=== PATIENT | female | born 1960 | race American Indian/Alaskan Native ===

== ENCOUNTER 2017-01-25 11:39 | Day surgery (SDC) | payer OTHER ==
[~2017-01-25 11:39] MED LIST: Lidocain 1% EPI 1:100,000 * 30 ML MDV ONE
[2017-01-25] MEDS ORDERED: Bupivacaine 0.25% SDV* 30 ML ONE (14:01)
[2017-01-25 15:04] VITALS: BP 118/58
--- NOTE | 2017-01-26 00:04 | OP ---
DATE OF OPERATION: 01/25/17 - [facility] DATE OF : 64 SURGEON: Regan Deluna MD TAX ASSISTANT: MANNY Finley ANESTHESIOLOGIST: None. ANESTHESIA: Local only with 1% lidocaine with epinephrine and bicarbonate. PRE-OP DIAGNOSES: 1. Right trigger thumb. 2. Right de Quervain's tenosynovitis. POST-OP DIAGNOSES: 1. Right trigger thumb. 2. Right de Quervain's tenosynovitis. OPERATIVE PROCEDURE: 1. Right trigger thumb A1 shilpa release. 2. Right de Quervain's release. INDICATIONS: Shireen is a patient who had an injection and got significantly better, but it was still incomplete relief and then the pain came back. She is having locking and catching in the thumb as well. This was still appearing when I saw her in the preoperative holding area. We talked about risks and benefits. She wanted to proceed with surgery. ESTIMATED BLOOD LOSS: 5 mL. COMPLICATIONS: None. FINDINGS: There was an accessory compartment in the first dorsal compartment. DESCRIPTION OF PROCEDURE: Shireen was seen in the preoperative holding area and the correct site, side, and procedure were identified. We had a time-out and I anesthetized the operative area. After that was performed, we came back to the operating room and then the arm was prepped and draped in the usual fashion and a formal time-out was performed. I began by making a 1 cm transverse incision in the thumb MP flexion crease. Dissection was carried down bluntly with a tenotomy scissors and full thickness flaps were raised off of the tendon sheath. The digital nerves were retracted with the flaps. Under direct visualization, the A1 shilpa was longitudinally incised. The release was carried out proximally and distally with the tenotomy scissors all under direct visualization. When I was satisfied with the release , I had her flex and extend the thumb up and down and there was resolution of the clicking. I therefore irrigated out the wound and this was closed with 4-0 nylon horizontal mattress sutures. I next made a 2 cm transverse incision just proximal to the radial styloid directly over the first dorsal compartment tendon sheath. Full thickness flaps were again raised with the tenotomy scissors directly off the tendon sheath so as to gently retract the sensory nerves. Under direct visualization, the first dorsal compartment tendon sheath was incised along its dorsal edge. The release was carried out proximally and distally with the tenotomy scissors. There was indeed an accessory compartment with the septum, which was incised sharply with knife. There was some tenosynovitis, which was excised. Once I carried out the release proximally and distally and was satisfied with the release, I went ahead and irrigated out the wound and the skin was closed with 4 -0 nylon horizontal mattress sutures. I infiltrated the operative areas with 0.25% Marcaine. The wounds were dressed with Xeroform, 4x4's, sterile Webril and an Nacho bandage. She was taken to the recovery room in stable condition. [id number]/[facility] #: [id number] MTDD
== END 2017-01-25 15:00 | disposition home or self-care (01) ==
LOC: OREAST 11:39
PROVIDERS: ATTEND Orthopaedic Surgery Hand Surgery
DX: M65.311 Trigger thumb, right thumb (principal); M65.4 Radial styloid tenosynovitis [de Quervain]; J45.909 Unspecified asthma, uncomplicated; F17.210 Nicotine dependence, cigarettes, uncomplicated

== ENCOUNTER 2017-04-06 11:24 | Emergency (ER) | payer OTHER ==
--- NOTE | 2017-04-06 12:11 | UC ---
Abdominal Pain Female HPI - HPI Summary HPI Summary: left sided abd pain, 3 days of blood in stool, seems to have increased urination and slight nausea, was constipated prior to bleeding---blood amonts to a few drops and smear on toilet paper - History of Current Complaint Chief Complaint: UCGeneralIllness Stated Complaint: PERSONAL Time Seen by Provider: 04/06/17 11:58 Hx Obtained From: Patient ?: No Onset/Duration: Gradual Onset, Lasting Days - 3 Timing: Constant Severity Initially: Mild Pain Intensity: 4 Pain Scale Used: 0-10 Numeric Location: Discrete At: LLQ Radiates: Yes Radiates to: Flank Character: Colicy, Cramping Aggravating Factor(s): Nothing Alleviating Factor(s): Nothing Associated Signs and Symptoms: Positive: Constipation, Blood in Stool, Nausea Allergies/Adverse Reactions: Allergies Allergy/AdvReac Type Severity Reaction Status Date / Time No Known Allergies Allergy Verified 04/06/17 11:39 PMH/Surg Hx/FS Hx/Imm Hx Previously Healthy: No - tubal Respiratory History: Asthma - Surgical History Surgical History: Yes Surgery Procedure, Year, and Place: c-sec. RIGHT wrist/thumb February 2017 - Family History Known Family History: Positive: Hypertension, Diabetes, Other - cancer - Social History Occupation: Employed Full-time Lives: With Family Alcohol Use: None Substance Use Type: None Smoking Status (MU): Current Every Day Smoker Type: Cigarettes Amount Used/How Often: 1 ppd Cessation Counseling: Counseled 3+Min - 10 Min - Immunization History Most Recent Influenza Vaccination: 2015 Review of Systems Constitutional: Negative Skin: Negative Eyes: Negative ENT: Negative Respiratory: Negative Cardiovascular: Negative Gastrointestinal: Negative, Nausea, Other - brenden lower gi blood Genitourinary: Negative, Other - increase urination Motor: Negative Neurovascular: Negative Musculoskeletal: Negative Neurological: Negative Psychological: Negative All Other Systems Reviewed And Are Negative: Yes Physical Exam Triage Information Reviewed: Yes Appearance: Well-Appearing, No Pain Distress, Well-Nourished Vital Signs: Initial Vital Signs Temp 97.9 F 04/06/17 11:40 Pulse 99 04/06/17 11:40 Resp 18 04/06/17 11:40 BP 114/61 04/06/17 11:40 Pulse Ox 96 04/06/17 11:40 Vital Signs Reviewed: Yes Eye Exam: Normal Eyes: Positive: Conjunctiva Clear ENT Exam: Normal ENT: Positive: Normal ENT inspection, Hearing grossly normal, TMs normal. Negative: Nasal congestion, Nasal drainage, Trismus, Muffled/hoarse voice Dental Exam: Normal Neck exam: Normal Neck: Positive: Supple, Nontender Respiratory Exam: Normal Respiratory: Positive: Chest non-tender, Lungs clear, Normal breath sounds, No respiratory distress, No accessory muscle use Cardiovascular Exam: Normal Cardiovascular: Positive: RRR, No Murmur, Pulses Normal, Brisk Capillary Refill Abdominal Exam: Normal Abdomen Description: Positive: No Organomegaly, Soft, CVA Tenderness (L). Negative: CVA Tenderness (R), Distended, Guarding, Hernia @, Hepatomegaly, McBurney's Point Tenderness, Peritoneal Signs, Pulsatile Mass, Splenomegaly Bowel Sounds: Positive: Present Musculoskeletal Exam: Normal Musculoskeletal: Positive: Strength Intact, ROM Intact, No Edema Neurological Exam: Normal Neurological: Positive: Alert, Muscle Tone Normal Psychological Exam: Normal Skin Exam: Normal Diagnostics - Laboratory Diagnostic Studies Completed/Ordered: guiac (+), urine +blood, + protien - Radiology No standard instances Xray Interpretation: Positive (See Comments) Radiology Interpretation Completed By: Radiologist - dermoid cyst left ovary, cyst left kidney Abd Pain Female Course/Dx - Course Course Of Treatment: follow with urology-hematura, gynocology-thickink uterine strip and ovarian cyst, gi-BRBPR, to ED for acute worsening of symptoms, dizziness, weakness, - Differential Dx/Diagnosis Differential Diagnosis: Bowel Obstruction, Irritable Bowel Syndrome, Pelvic Inflammatory Disease, Renal Colic, Urinary Tract Infection, Other - RCC, Ovaian Cancer, lower Gibelled Provider Diagnoses: Hematuria, renal cyst, BRBPR, Nicotine dependent Discharge - Discharge Plan Condition: Stable Disposition: HOME Prescriptions: Albuterol HFA INHALER* [Ventolin HFA Inhaler*] 2 puff INH Q4H PRN #1 PRN Reason: Wheezing Albuterol HFA INHALER* [Ventolin HFA Inhaler*] 2 puff INH Q4H PRN #1 mdi PRN Reason: wheezing Patient Education Materials: Ovarian Cyst (ED), How to Stop Smoking (ED), Rectal Bleeding (ED), Hematuria (ED) Referrals: [facility] [Provider Group] - As Soon As Possible [facility] [Provider Group] - As Soon As Possible [facility] [Provider Group] - As Soon As Possible Chris Mary MD [Primary Care Provider] - 3 Days
--- NOTE | 2017-04-06 12:53 | RAD ---
INDICATION: LEFT flank pain. Rectal bleeding. Onset 3 days ago. COMPARISON: No relevant prior exams available on the [facility] [place] for comparison. TECHNIQUE: Multidetector CT images were obtained from the lung bases to the ischial tuberosities. Evaluation of the viscera is limited without IV contrast. Multiplanar reformation. REPORT: Unremarkable visualized inferior thorax. Subcentimeter cyst at the dome of the RIGHT anterior hepatic segment. No suspicious liver lesions conspicuous. Unremarkable gallbladder, pancreas, spleen. Negative for CT abnormality of the upper GI, small bowel, retrocecal appendix, or colon. Negative for ascites, free air, hernias. Normal adrenal glands. 1.8 cm maximum dimension predominant water density lesion at the superior pole cortex of the LEFT kidney is remarkable for minimal linear marginal calcification. No renal collecting system or ureteral or bladder stones evident. Negative for hydronephrosis. Phlebolith noted adjacent to the distal LEFT ureter. No CT abnormality of the largely decompressed urinary bladder, anteverted uterus, or RIGHT adnexal region. Sharply circumscribed 2.9 x 2.9 x 2.8 cm predominant fat density LEFT adnexal region lesion with strands of soft tissue density. No definitive fluid fluid level evident. No associated calcifications. Negative for lymphadenopathy. Normal diameter abdominal aorta and iliac arteries with minimal calcific plaque. Physiologic distention of the IVC. Negative for suspicious osseous lesions. IMPRESSION: 1. Normal appendix documented. Negative for colonic diverticular disease or other CT conspicuous pathology of the alimentary tract within limits of a noncontrast exam. Negative for ascites or free air. 2. Relative low suspicion 1.8 cm LEFT renal cortical cyst with minimal marginal calcification for which reassessment with ultrasound in approximate 6 months time is suggested. 3. 2.9 cm probable dermoid cyst of the LEFT ovary. Despite small size given LEFT lower quadrant pain consider ultrasound for further assessment specifically to exclude ovarian torsion if deemed clinically appropriate.
[2017-04-06 13:47] VITALS: BP 104/68
--- NOTE | 2017-04-06 13:54 | RAD ---
INDICATION: Dermoid cyst left ovary. Left lower quadrant pain. Evaluate for torsion. COMPARISON: CT April 06, 2017 TECHNIQUE: Longitudinal and transverse transvaginal scans of the pelvis were obtained. FINDINGS: Uterus: The uterus is normal in size and appears mildly bulky measuring 8.8 x 4.7 x 5.7 cm. There is an anterior body fibroid measuring 1.2 x 0.9 x 1.3 cm, second tiny fibroid measuring 0.6 centers also located in the anterior body. There is a posterior body/fundal fibroid measuring 1.4 x 1.0 x 1.0 cm. Endometrial thickness: The endometrial thickness is measured at 0.9 cm. The endometrial measure greater than 0.6 cm is thickened in a menopausal/perimenopausal woman. Suggest follow-up. Free fluid: There is no significant free fluid . Ovaries: The ovaries are normal in size. The right ovary measures 2.2 x 1.9 x 2.3 cm. The left ovary measures 4.0 x 3.2 x 4.1 cm. There is a nonshadowing echogenic mass in the left ovary measuring 3.2 x 2.8 x 3.4 cm which corresponds to the fatty lesion identified on CT. The findings are compatible with a dermoid cyst. Doppler interrogation demonstrates flow to each ovary. Other: None IMPRESSION: 1. Fibroid uterus. 2. Mildly prominent endometrial stripe. Suggest follow-up. 3. Dermoid cyst left ovary. No evidence of ovarian torsion.
== END 2017-04-06 14:45 | disposition home or self-care (01) ==
LOC: UCCORT 11:24
DX: R31.9 Hematuria, unspecified (principal); N28.1 Cyst of kidney, acquired; K62.5 Hemorrhage of anus and rectum; D25.9 Leiomyoma of uterus, unspecified; D27.1 Benign neoplasm of left ovary; K59.00 Constipation, unspecified; R11.0 Nausea; J45.909 Unspecified asthma, uncomplicated; F17.210 Nicotine dependence, cigarettes, uncomplicated; Z71.6 Tobacco abuse counseling
CPT/HCPCS: 74176; 76830; 81003; 82272; 99212; G0463

== ENCOUNTER 2017-04-17 18:23 | Emergency (ER) | payer OTHER ==
[2017-04-17 18:54] VITALS: BP 123/73
--- NOTE | 2017-04-17 19:49 | UC ---
Back Pain HPI - HPI Summary HPI Summary: left flank pain x 1 day pain started on her left upper back about 3 months ago , no radiating to her left flank 6/10 pain , pain is sharp, no known injury no fever, no chills, no n/v/d/c , no urinary sx - History of Current Complaint Chief Complaint: Mariano Stated Complaint: LFT SIDE RIB AREA PAIN/PERSONAL Time Seen by Provider: 04/17/17 19:15 Hx Obtained From: Patient Onset/Duration: Gradual Onset, Lasting Days - 1, Still Present Timing: Constant Severity Initially: Severe Severity Currently: Moderate Back Pain: Is Discrete @ - left flank Character: Sharp Aggravating: Nothing Alleviating: Nothing Associated Signs And Symptoms: Positive: Flank Pain - left. Negative: Swelling , Redness, Bruising, Fever, Weakness, Numbness, Tingling, Abdominal Pain, Bladder Incontinence, Bowel Incontinence, Weight Loss - Allergies/Home Medications Allergies/Adverse Reactions: Allergies Allergy/AdvReac Type Severity Reaction Status Date / Time No Known Allergies Allergy Verified 04/17/17 18:54 Home Medications: Home Medications Simethicone [Gas-X] 80 mg PO DAILY 04/17/17 [History Confirmed 04/17/17] PMH/Surg Hx/FS Hx/Imm Hx Endocrine History: Diabetes - Surgical History Surgical History: Yes Surgery Procedure, Year, and Place: c-sec. RIGHT wrist/thumb February 2017 - Family History Known Family History: Positive: Hypertension, Diabetes, Other - cancer - Social History Alcohol Use: None Substance Use Type: None Smoking Status (MU): Current Every Day Smoker Type: Cigarettes Amount Used/How Often: 1 ppd - Immunization History Most Recent Influenza Vaccination: 2015 Review of Systems Constitutional: Negative Skin: Negative Eyes: Negative ENT: Negative Respiratory: Negative All Other Systems Reviewed And Are Negative: Yes Physical Exam Triage Information Reviewed: Yes Appearance: Well-Appearing, No Pain Distress, Well-Nourished Vital Signs: Initial Vital Signs Temp 97.3 F 04/17/17 18:49 Pulse 72 04/17/17 18:49 Resp 17 04/17/17 18:49 BP 123/73 04/17/17 18:49 Pulse Ox 100 04/17/17 18:49 Eye Exam: Normal Eyes: Positive: Conjunctiva Clear ENT: Positive: Normal ENT inspection, Hearing grossly normal, Pharynx normal Neck: Positive: Supple, Nontender, No Lymphadenopathy Respiratory: Positive: Chest non-tender, Lungs clear, Normal breath sounds Cardiovascular: Positive: RRR, No Murmur, Pulses Normal Abdominal Exam: Normal Abdomen Description: Positive: Nontender, Soft. Negative: CVA Tenderness (R), CVA Tenderness (L), Distended, Guarding Bowel Sounds: Positive: Present Back Pain Course/Dx - Differential Dx/Diagnosis Provider Diagnoses: renal colic Discharge - Discharge Plan Condition: Stable Disposition: HOME Prescriptions: Tamsulosin HCl [Flomax] 0.4 mg PO DAILY #10 cap traMADol TAB* [Ultram*] 50 mg PO Q6HR PRN #20 tab MDD 4 PRN Reason: Pain Patient Education Materials: Renal Colic (ED) Referrals: Chris Mary MD [Primary Care Provider] - 7 Days
== END 2017-04-17 20:05 | disposition home or self-care (01) ==
LOC: UCCORT 18:23
DX: N23 Unspecified renal colic (principal); E11.9 Type 2 diabetes mellitus without complications; F17.210 Nicotine dependence, cigarettes, uncomplicated
CPT/HCPCS: 81003; 99212; G0463